=== PATIENT | female | born 1985 | race African-American/Black ===

== ENCOUNTER 2024-01-31 12:20 | Emergency (ER) | payer OTHER, SELFPAY ==
--- NOTE | ~2024-01-31 | XR_ITS ---
EXAMINATION: XR chest 2V 01/31/2024 14:29 INDICATION: Shortness of breath PROCEDURE: 2 view chest COMPARISON: No prior studies for comparison. FINDINGS: The lungs are clear. The cardiomediastinal silhouette is within normal limits. There are no pleural effusions. There is no pneumothorax suspected. IMPRESSION: 1: NO ACUTE CARDIOPULMONARY DISEASE. Reviewed, dictated and finalized at location B.
[2024-01-31 12:26] VITALS: BP 137/97; PULSE 140; RESP 18; TEMP 37.2; O2SAT 100
--- NOTE | 2024-01-31 12:26 | ED.GENADULT ---
HPI - General Adult General Chief complaint: Anxiety Stated complaint: Fibromyalgia pain Time Seen by Provider: 01/31/24 12:26 Source: patient and family Mode of arrival: ambulatory Limitations: no limitations History of Present Illness HPI narrative: Pt is a 38-year-old female who presents to the ER with an anxiety attack. She reports she was recently diagnosed with sinusitis and was put on a z pack, but had GI symptoms so she was switched to Augmentin. Pt reports the antibiotics have been causing reflux problems. She also reports she has a history of fibromyalgia and anxiety. Pt endorses back pain, shoulder pain, popping in my ears, and nerve pain. She denies chest pain, besides the reflux. Pt does endorse shortness of breath. She denies headache and extremity weakness. Related Data Allergies Allergy/AdvReac Type Severity Reaction Status Date / Time strawberry Allergy Unknown Unknown Verified 01/31/24 12:54 sumatriptan Allergy Unknown Unknown Verified 01/31/24 12:54 Review of Systems Review of Systems: All systems reviewed & are unremarkable except as noted in HPI and below PMFSH Social History Social History Substance use type: does not use Exam Narrative: GENERAL: Well appearing, well-nourished, non-toxic, but presents in acute distress d/t her current state of high anxiety. NECK: Supple. No adenopathy, no masses. RESPIRATORY: Airway patent, respirations labored. Tachypnea. Clear to auscultation bilaterally, no rales, rhonchi, wheezing. CARDIOVASCULAR: Tachycardia present without murmurs, rubs, or gallops. Peripheral pulses 2+ and equal bilaterally. ABDOMINAL: Soft, nontender, nondistended, no hepatosplenomegaly. Normoactive BS. MUSCULOSKELETAL: Moves all extremities. Strength/ROM intact without gross deformities. SKIN: Warm, dry, normal color. No rashes. NEURO: A&O X3. Speech clear. Cranial nerves II-XII grossly intact. Steady gait. No ataxic movements. PSYCHIATRIC: Pt is tearful and appears panicky during exam. She is holding her family member's hands and rubbing her family member's shoulder. Course Vital Signs Vital signs: Vital Signs Temperature 37.2 C 01/31/24 12:26 Pulse Rate 140 H 01/31/24 12:26 Respiratory Rate 18 01/31/24 12:26 Blood Pressure 137/97 H 01/31/24 12:26 Pulse Oximetry 100 01/31/24 12:26 Oxygen Delivery Room Air 01/31/24 12:26 Temperature 37.2 C 01/31/24 12:26 Pulse Rate 111 H 01/31/24 12:45 Respiratory Rate 19 01/31/24 12:45 Blood Pressure 156/115 H 01/31/24 12:45 Pulse Oximetry 100 01/31/24 12:45 Oxygen Delivery Room Air 01/31/24 12:26 Medical Decision Making MDM Narrative Medical decision making narrative: Pt is a 38-year-old female who presents to the ER with an anxiety attack. She reports she was recently diagnosed with sinusitis and was put on a z pack, but had GI symptoms so she was switched to Augmentin. Pt reports the antibiotics have been causing reflux problems. She also reports she has a history of fibromyalgia and anxiety. Pt endorses back pain, shoulder pain, popping in my ears, and nerve pain. She denies chest pain, besides the reflux. Pt does endorse shortness of breath. She denies headache and extremity weakness. Differential Diagnosis Differential Diagnosis: Pulmonary embolism, anxiety attack, reaction to medication Vital Signs Vital Signs: Vital Signs Temperature 37.2 C 01/31/24 12:26 Pulse Rate 140 H 01/31/24 12:26 Respiratory Rate 18 01/31/24 12:26 Blood Pressure 137/97 H 01/31/24 12:26 Pulse Oximetry 100 01/31/24 12:26 Oxygen Delivery Room Air 01/31/24 12:26 Temperature 37.2 C 01/31/24 12:26 Pulse Rate 111 H 01/31/24 12:45 Respiratory Rate 19 01/31/24 12:45 Blood Pressure 156/115 H 01/31/24 12:45 Pulse Oximetry 100 01/31/24 12:45 Oxygen Delivery Room Air 01/31/24 12:26
--- NOTE | 2024-01-31 12:39 | ECG_ITS ---
Test Date: 2024-01-31 13:57:05 Measurements Intervals [place] Rate: 110 P: 34 ME: 136 QRS: 26 QRSD: 94 T: -1 QT: 321 QTc: 436 Interpretive Statements SINUS TACHYCARDIA NONSPECIFIC T-WAVE ABNORMALITY No previous ECG available for comparison Electronically Signed On 02-01-2024 14:23:19 CDT by Zack Galvez M.D.
[2024-01-31 12:45] VITALS: BP 156/115; PULSE 111; RESP 19; O2SAT 100
[2024-01-31] MEDS: ONDANSETRON INJ 4 MG/2 ML VIAL IV PUSH (12:55)
[2024-01-31] MEDS: LORazepam INJ (*CRX) 2 MG/ML VIAL 0.5 MG IV PUSH (12:55)
[2024-01-31] MEDS: BELLADONNA ALK/PHENOB ELIX 10 ML, MAG HYDROX/ALUMINUM HYD/SIMETH 30 ML, LIDOCAINE HCL 2... PO (12:55)
[2024-01-31] MEDS: KETOROLAC 15 MG/ML VIAL (*BKC) IV PUSH (12:55)
[2024-01-31 13:09] LABS: Basophils Percent Auto 0.4 % (0.2-1.2); Eosinophils Percent Auto 0.2 % (0-4.4); Hematocrit 36.5 % (37.0-47.0); Hemoglobin 12.2 g/dL (12.0-15.0); Immature Granulocyte Absolute 0.01 K/mm3 (0.00-0.031); Immature Granulocyte Percent A 0.2 % (0-0.5); Lymphocytes Absolute Auto 1.25 K/mm3 (0.9-3.2); Lymphocytes Percent Auto 25.9 % (18.3-44.2); Mean Corpuscular HGB Conc 33.4 g/dl (32-36); Mean Corpuscular Hemoglobin 25.8 pg (26-34); Mean Corpuscular Volume 77.2 fl (80-100); Mean Platelet Volume 11.2 fl (7.4-10.4); Monocytes Absolute Auto 0.3 K/mm3 (0.1-0.6); Monocytes Percent Auto 5.8 % (2.6-8.5); Neutrophils Absolute Auto 3.3 K/mm3 (1.3-6.7); Neutrophils Percent Auto 67.5 % (45.5-73.1); Platelet Count Result 324 k/mm3 (150-375); Red Blood Count 4.73 M/mm3 (4.2-5.4); Red Cell Distribution Width 15.2 % (11.5-14.5); White Blood Count 4.8 K/mm3 (4.5-10.0)
[2024-01-31 13:27] LABS: Alanine Aminotransferase 58 U/L (6-35); Albumin Level 4.4 g/dL (3.5-5.1); Alkaline Phosphatase 103 U/L (38-126); Anion Gap 16 mmol/L (4-12); Aspartate Amino Transferase 32 U/L (14-36); Bilirubin,Total 0.5 mg/dL (0.2-1.3); Blood Urea Nitrogen 4 mg/dL (7-17); Calcium 9.2 mg/dL (8.4-10.2); Carbon Dioxide 20 mmol/L (22-30); Chloride 101 mmol/L (98-107); Estimated CRCL calculation 126 ml/min; Estimated Glomerular Filt Rate > 60; Glucose 107 mg/dL (65-110); Lipase 92 U/L (23-300); Potassium 3.3 mmol/L (3.4-5.0); Sodium 137 mmol/L (137-145)
[2024-01-31 13:35] LABS: D Dimer 0.31 ug/mL (<0.48); Troponin I < 0.012 ng/mL (0.000-0.034)
[2024-01-31] MEDS: SODIUM CHLORIDE 0.9% IV 1,000 ML 999 ML IV CONT (14:09)
[2024-01-31 15:22] LABS: Add Urine Microscopic? YES; Appearance Urine Cloudy (Clear); Bacteria Urine None Seen /hpf; Bilirubin Urine Negative (Negative); Blood Urine Negative (Negative); Color Urine Dark Yellow (Yellow); Glucose Urine UA Negative (Negative); Ketones Urine 4+ mg/dL (Negative); Leukocyte Esterase Ur Negative LEU/UL (Negative); Nitrate Urine Negative (Negative); Protein Urine 1+ mg/dL (Negative); RBC Urine 0-2 /hpf (0-2); Specific Grav Ur 1.035 (1.001-1.035); Squamous Epithelial Cell Urine Many /hpf (Few); WBC Urine 0-5 /hpf (0-3); pH Urine 5.5 (5.0-9.0)
[2024-01-31 16:00] VITALS: BP 142/84; PULSE 88; RESP 14; O2SAT 98
== END 2024-01-31 16:01 | disposition home or self-care (01) ==
PROVIDERS: Emergency Provider Registered Nurse; PCP Emergency Medicine
DX: F41.9 Anxiety disorder, unspecified (principal); R06.4 Hyperventilation; M79.7 Fibromyalgia; K21.9 Gastro-esophageal reflux disease without esophagitis; R00.0 Tachycardia, unspecified; R94.31 Abnormal electrocardiogram [ECG] [EKG]
CPT/HCPCS: 36415; 71046; 80053; 81001; 83690; 84484; 85025; 85380; 93005; 96361; 96374; 96375; 99284; A9270; J1885; J2060; J2405; J7030